=== PATIENT | male | born 1985 | race Caucasian/White ===

== ENCOUNTER 2018-01-23 22:48 | Emergency (ER) | payer OTHER ==
[~2018-01-23] VITALS: Ht 185.4 cm; Wt 124.3 kg
[~2018-01-23 22:48] MED LIST: ACULAR 3 ML3 M1 OP; AMOXICILLIN500 MG PO; AMOXIL500 MG PO; ANAPROX DS550 MG PO; AUGMENTIN 875 M1 TAB PO; CATAFLAM50 MG PO; CIPRO500 MG PO; CLARITIN10 MG PO; FLAGYL500 MG PO; FLEXERIL10 MG PO; KEFLEX500 MG PO; LOMOTIL 0.025 M1 TAB PO; MOTRIN800 MG PO; Motrin,Rufen800 MG PO; NKHM; PREDNISONE20 MG PO; ROBITUSSIN AC 10 MG/ PO; SERTRALINE50 MG PO; TESSALON PERLE200 MG PO; TOBREX OPHTH S2.5 ML OPH; VIBRAMYCIN100 MG PO; VICODIN 5-3001 EACH PO; WELLBUTRIN SR200 MG PO; Wellbutrin Sr100 MG PO; ZITHROMAX Z PA250 MG PO; ZOFRAN ODT4 MG SL; ZOFRAN ODT8 MG PO; ZYRTEC10 MG PO
== END 2018-01-23 23:41 | disposition home or self-care (01) ==
LOC: ED 22:48
DX: S05.02XA Injury of conjunctiva and corneal abrasion without foreign body, left eye, initial encounter (principal); Z88.1 Allergy status to other antibiotic agents; X18.XXXA Contact with other hot metals, initial encounter; Y93.89 Activity, other specified; Y92.89 Other specified places as the place of occurrence of the external cause; Y99.8 Other external cause status

== ENCOUNTER 2018-04-09 22:10 | Emergency (ER) | payer OTHER ==
[~2018-04-09] VITALS: Ht 182.8 cm; Wt 118.4 kg
== END 2018-04-10 00:35 | disposition home or self-care (01) ==
LOC: ED 22:10
DX: S86.811A Strain of other muscle(s) and tendon(s) at lower leg level, right leg, initial encounter (principal); Z88.1 Allergy status to other antibiotic agents; X50.1XXA Overexertion from prolonged static or awkward postures, initial encounter; Y93.02 Activity, running; Y92.89 Other specified places as the place of occurrence of the external cause; Y99.9 Unspecified external cause status

== ENCOUNTER 2018-08-10 19:40 | Emergency (ER) | payer OTHER ==
[~2018-08-10] VITALS: Ht 185.4 cm; Wt 123.4 kg
[2018-08-10 20:03] LABS: BASO # 0.1 10*3/uL (0.0-0.1); BASO % 0.6 % (0.0-1.0); EOS # 0.3 10*3/uL (0.0-0.4); EOS % 2.9 % (1.0-4.0); HEMATOCRIT 46.4 % (42.0-52.0); HEMOGLOBIN 16.7 g/dl (14.0-18.0); LYMPH # 1.2 10*3/uL (1.3-4.4); LYMPH % 13.2 % (27.0-41.0); MEAN CELL VOLUME 86.9 fl (80.0-94.0); MEAN CORPUSCULAR HGB 31.3 pg (27.0-31.0); MEAN PLATELET VOLUME 9.5 fl (9.6-12.3); MONO % 11.3 % (3.0-9.0); NEUT # 6.3 10*3/uL (2.3-7.9); NEUT % 71.8 % (47.0-73.0); PLATELET COUNT AUTOMATED 200 10*3/uL (130-400); RED BLOOD COUNT 5.34 10*6/uL (4.50-5.90); RED CELL DISTRI WIDTH 12.6 % (0-14.5); WHITE BLOOD COUNT 8.8 10*3/uL (4.8-10.8)
[2018-08-10 20:20] LABS: ALBUMIN 3.6 gm/dl (3.1-4.5); ALKALINE PHOSPHATASE 74 U/L (45-117); BUN 12 mg/dl (7-24); CHLORIDE 104 mmol/L (98-107); CREATININE 1.28 mg/dL (0.70-1.30); LIPASE 136 U/L (73-393); POTASSIUM 3.5 mmol/L (3.5-5.1); SGOT/AST 31 IU/L (3-35); SGPT/ALT 75 U/L (12-78); SODIUM 140 mmol/L (136-145); TOTAL PROTEIN 7.8 gm/dL (6.4-8.2)
== END 2018-08-10 21:10 | disposition home or self-care (01) ==
LOC: ED 19:40
PROVIDERS: Nurse Practitioner Family
DX: K52.9 Noninfective gastroenteritis and colitis, unspecified (principal); Z88.1 Allergy status to other antibiotic agents

== ENCOUNTER 2019-11-12 18:59 | Emergency (ER) | payer OTHER ==
[~2019-11-12] VITALS: Ht 185.4 cm; Wt 124.7 kg
[2019-11-12] MEDS ORDERED: NORCO 5-325 TA1 EACH PO (21:16)
[2019-11-12] MEDS ORDERED: ROBAXIN-750750 MG PO (21:16)
[2019-11-12] MEDS ORDERED: PREDNISONE20 M1 PO (21:16)
== END 2019-11-12 21:33 | disposition home or self-care (01) ==
LOC: ED 18:59
DX: S20.20XA Contusion of thorax, unspecified, initial encounter (principal); S30.0XXA Contusion of lower back and pelvis, initial encounter; Z88.8 Allergy status to other drugs, medicaments and biological substances; Z79.899 Other long term (current) drug therapy; W22.09XA Striking against other stationary object, initial encounter; Y93.89 Activity, other specified; Y92.89 Other specified places as the place of occurrence of the external cause; Y99.8 Other external cause status

== ENCOUNTER 2020-04-19 00:34 | Emergency (ER) | payer OTHER ==
[~2020-04-19] VITALS: Wt 124.7 kg
[~2020-04-19 00:34] MED LIST changes: +NORCO 5-325 TA1 EACH PO; +PREDNISONE20 M1 PO; +ROBAXIN-750750 MG PO
[2020-04-19] MEDS ORDERED: BUSPIRONE HCL10 MG PO (00:46)
[2020-04-19] MEDS ORDERED: OMEPRAZOLE MAGN20 MG PO (00:47)
[2020-04-19] MEDS ORDERED: FLUOXETINE HCL10 MG PO (00:47)
[2020-04-19 01:57] LABS: BILIRUBIN Negative (Negative); BLOOD Negative (Negative); CLARITY Clear (Clear); COLOR Yellow (Yellow); GLUCOSE Negative (Negative); KETONE Negative (Negative); LEUKO ESTERASE Negative (Negative); NITRITE Negative (Negative); PH 5.5 (4.5-8.0)
[2020-04-19 02:13] LABS: RBC 0-2 rbc/hpf (0-2); WBC 0-2 wbc/hpf (0-5)
== END 2020-04-19 02:42 | disposition home or self-care (01) ==
LOC: ED 00:34
PROVIDERS: Internal Medicine
DX: K64.9 Unspecified hemorrhoids (principal); Z79.899 Other long term (current) drug therapy

== ENCOUNTER 2021-01-16 13:38 | Emergency (ER) | payer OTHER ==
[~2021-01-16] VITALS: Ht 185.4 cm; Wt 117.9 kg
[~2021-01-16 13:38] MED LIST changes: +BUSPIRONE HCL10 MG PO; +FLUOXETINE HCL10 MG PO; +OMEPRAZOLE MAGN20 MG PO
[2021-01-16 14:54] LABS: BASO # 0.1 10*3/uL (0.0-0.1); BASO % 0.6 % (0.0-1.0); EOS # 0.1 10*3/uL (0.0-0.4); HEMATOCRIT 45.8 % (42.0-52.0); LYMPH # 1.1 10*3/uL (1.3-4.4); LYMPH % 12.4 % (27.0-41.0); MEAN CELL VOLUME 84.5 fl (80.0-94.0); MEAN CORPUSCULAR HGB 30.8 pg (27.0-31.0); MEAN CORPUSCULAR HGB CONC 36.5 g/dl (33.0-37.0); MEAN PLATELET VOLUME 9.5 fl (9.6-12.3); MONO # 0.7 10*3/uL (0.1-1.0); MONO % 7.7 % (3.0-9.0); PLATELET COUNT AUTOMATED 238 10*3/uL (130-400); RED BLOOD COUNT 5.42 10*6/uL (4.50-5.90); WHITE BLOOD COUNT 8.9 10*3/uL (4.8-10.8)
[2021-01-16 15:08] LABS: ALBUMIN 4.2 gm/dl (3.1-4.5); ALKALINE PHOSPHATASE 70 U/L (45-117); BUN 15 mg/dl (7-24); CHLORIDE 109 mmol/L (98-107); CREATININE 1.23 mg/dL (0.70-1.30); POTASSIUM 3.5 mmol/L (3.5-5.1); SGOT/AST 16 IU/L (3-35); SGPT/ALT 36 U/L (12-78); SODIUM 140 mmol/L (136-145); TOTAL PROTEIN 8.3 gm/dL (6.4-8.2)
[2021-01-16] MEDS ORDERED: PEPCID20 MG PO (15:12)
[2021-01-16 15:15] LABS: ETHYL ALCOHOL < 3.0 mg/dl (<3)
[2021-01-16 16:08] LABS: BILIRUBIN Negative (Negative); BLOOD Negative (Negative); CLARITY Clear (Clear); COLOR Yellow (Yellow); GLUCOSE Negative (Negative); KETONE Trace (Negative); LEUKO ESTERASE Negative (Negative); NITRITE Negative (Negative)
[2021-01-16 16:19] LABS: BACTERIA TRACE; RBC 0-2 rbc/hpf (0-2); WBC 0-2 wbc/hpf (0-5)
[2021-01-16 16:21] LABS: URINE AMPHETAMINES < 1000 (1000ng/ml); URINE BARBITURATES < 200 (200ng/ml); URINE BENZODIAZEPINES < 200 (200ng/ml); URINE CANNABINOIDS (THC) < 50 (50ng/ml); URINE COCAINE < 300 (300ng/ml); URINE OPIATES < 300 (300ng/ml)
[2021-01-16 16:22] LABS: URINE METHADONE < 300 (300ng/ml)
[2021-01-16 16:23] LABS: URINE PHENCYCLIDINE < 25 (25ng/ml)
[2021-01-16] MEDS ORDERED: ATIVAN0.5 MG PO (17:26)
== END 2021-01-16 17:39 | disposition home or self-care (01) ==
LOC: ED 13:38
PROVIDERS: Emergency Medicine
DX: F43.21 Adjustment disorder with depressed mood (principal); Z88.1 Allergy status to other antibiotic agents; Z79.899 Other long term (current) drug therapy

== ENCOUNTER 2021-04-30 02:24 | Emergency (ER) | payer OTHER ==
[~2021-04-30] VITALS: Ht 185.4 cm; Wt 108.9 kg
[~2021-04-30 02:24] MED LIST changes: +ATIVAN0.5 MG PO; +PEPCID20 MG PO
[2021-04-30] MEDS ORDERED: CLINDAMYCIN HC300 MG PO (02:51)
== END 2021-04-30 03:39 | disposition home or self-care (01) ==
LOC: ED 02:24
DX: K02.9 Dental caries, unspecified (principal); Z88.1 Allergy status to other antibiotic agents; Z79.899 Other long term (current) drug therapy

== ENCOUNTER 2022-02-09 08:40 | Emergency (ER) | payer OTHER ==
[~2022-02-09] VITALS: Ht 182.8 cm; Wt 122.5 kg
[~2022-02-09 08:40] MED LIST changes: +CLINDAMYCIN HC300 MG PO
[2022-02-09] MEDS ORDERED: FLUOXETINE HCL20 M2 PO (09:14)
[2022-02-09] MEDS ORDERED: PROPRANOLOL HCL10 MG PO (09:18)
[2022-02-09 09:25] LABS: BASO # 0.1 10*3/uL (0.0-0.1); BASO % 1.1 % (0.0-1.0); EOS # 0.3 10*3/uL (0.0-0.4); EOS % 3.9 % (1.0-4.0); HEMATOCRIT 44.4 % (42.0-52.0); LYMPH # 1.5 10*3/uL (1.3-4.4); LYMPH % 22.1 % (27.0-41.0); MEAN CELL VOLUME 86.2 fl (80.0-94.0); MEAN CORPUSCULAR HGB 31.5 pg (27.0-31.0); MEAN CORPUSCULAR HGB CONC 36.5 g/dl (33.0-37.0); MEAN PLATELET VOLUME 9.9 fl (9.6-12.3); MONO # 0.6 10*3/uL (0.1-1.0); MONO % 8.9 % (3.0-9.0); NEUT # 4.3 10*3/uL (2.3-7.9); NEUT % 63.7 % (47.0-73.0); PLATELET COUNT AUTOMATED 186 10*3/uL (130-400); RED BLOOD COUNT 5.15 10*6/uL (4.50-5.90); RED CELL DISTRI WIDTH 12.5 % (0-14.5); WHITE BLOOD COUNT 6.7 10*3/uL (4.8-10.8)
[2022-02-09 09:36] LABS: BUN 14 mg/dl (7-24); CHLORIDE 108 mmol/L (98-107); CREATININE 1.12 mg/dL (0.70-1.30); POTASSIUM 3.8 mmol/L (3.5-5.1); SODIUM 139 mmol/L (136-145)
[2022-02-09] MEDS ORDERED: PREDNISONE20 M1 PO (11:45)
== END 2022-02-09 11:47 | disposition home or self-care (01) ==
LOC: ED 08:40
PROVIDERS: Emergency Medicine
DX: J98.01 Acute bronchospasm (principal); R06.00 Dyspnea, unspecified; F41.9 Anxiety disorder, unspecified; Z79.2 Long term (current) use of antibiotics; Z79.899 Other long term (current) drug therapy

== ENCOUNTER 2022-08-12 19:50 | Emergency (ER) | payer OTHER ==
[~2022-08-12] VITALS: Ht 182.8 cm; Wt 122.5 kg
[~2022-08-12 19:50] MED LIST changes: +FLUOXETINE HCL20 M2 PO; +PROPRANOLOL HCL10 MG PO
== END 2022-08-12 21:23 | disposition home or self-care (01) ==
LOC: ED 19:50
DX: S86.912A Strain of unspecified muscle(s) and tendon(s) at lower leg level, left leg, initial encounter (principal); Z88.1 Allergy status to other antibiotic agents; Z79.899 Other long term (current) drug therapy; X50.9XXA Other and unspecified overexertion or strenuous movements or postures, initial encounter; Y93.89 Activity, other specified; Y92.89 Other specified places as the place of occurrence of the external cause; Y99.8 Other external cause status